=== PATIENT | male | born 1985 ===

== ENCOUNTER 2018-11-07 07:37 | Day surgery (SDC) | payer OTHER ==
[2018-11-07] MEDS ORDERED: PERCOCET 5-3251 EACH PO (13:21)
[2018-11-07] MEDS ORDERED: SURFAK240 MG PO (13:21)
[2018-11-07] MEDS ORDERED: PROTONIX20 MG PO (13:22)
== END 2018-11-07 18:55 | disposition home or self-care (01) ==
LOC: CIR.AMB 07:37 → EDSEX 07:37 → CIR.AMB 12:30 → EDBD 13:30 → CIR.AMB 18:55
DX: K80.10 Calculus of gallbladder with chronic cholecystitis without obstruction (principal)